=== PATIENT | female | born 1985 | race Caucasian/White ===

== ENCOUNTER → 2016-05-21 | Day surgery (SDC) | payer BC ==
--- NOTE | 2016-05-23 15:38 | PATH ---
Cytology Non-Gynecological Report Patient Name: CANDIDA DOAN [facility]. Rec. #: [id number] /Age/Gender: 1985 (Age: 30) / F Account: [id number] Location: RADIOLOGY Taken: 05/21/2016 Received: 05/21/2016 Reported: 05/23/2016 Physicians: Kerri Hansen M.D. Specimen(s) Received LEFT THYROID FNA Clinical History Left thyroid nodule 2.1 x 0.98 x 1.0 cm Final Diagnosis THYROID GLAND, LEFT LOBE, US GUIDED FINE NEEDLE ASPIRATION BIOPSY: EVALUATION IS PARTIALLY LIMITED BY AIR DRYING ARTIFACT. ATYPICAL CELLS OF DETERMINE SIGNIFICANCE (AUS, BETHESDA CATEGOY III), SEE COMMENT. Comment: Smears show scattered clusters of follicular epithelial cells with focal crowding, mild to moderate nuclear enlargement and occasional nuclear grooves. Colloid is focally present. Microcalcifications are focally present. The findings are best classified as atypia of undetermined significance (AUS, [place] category III) with the described nuclear features, while not diagnostic, raising concerns for papillary thyroid carcinoma. Clinical, imaging correlations and additional sampling are suggested. The case was discussed with Dr. Diaz on 05/22/16. Electronically Signed Ike Almaraz M.D. Gross Description Received are four air dried smears, four smears in 95% alcohol, and 1 cc of bloody fluid in formalin. Four diff-quik stained slides, four Pap stained slides and one cell block are made.
== END | disposition home or self-care (01) ==
LOC: JRADIR 09:33
PROVIDERS: ATTEND Internal Medicine Endocrinology, Diabetes & Metabolism
PROC: 0G9G3ZX Drainage of Left Thyroid Gland Lobe, Percutaneous Approach, Diagnostic (ICD-10-PCS; principal; 2016-05-21)
PROC: BG44ZZZ Ultrasonography of Thyroid Gland (ICD-10-PCS; 2016-05-21)
DX: E04.1 Nontoxic single thyroid nodule (principal)
CPT/HCPCS: 76942; 88173; 88305-TC

== ENCOUNTER → 2016-05-26 | Day surgery (SDC) | payer BC ==
[2016-05-26 10:06] LABS: BASOPHIL 0.7 % (0-2.0); EOSINOPHIL 1.2 % (0-4.5); MCH 30.3 pg (25.7-33.7); MCHC 33.5 g/dl (32.0-36.0); MEAN CELL VOLUME 90.6 fl (80-96); MEAN PLT VOLUME 8.2 fl (7.5-11.1); NEUTROPHILS 61.2 % (42.8-82.8); PLATELET COUNT 278 K/MM3 (134-434); RDW 12.5 % (11.6-15.6); WHITE BLOOD COUNT 7.8 K/mm3 (4.0-10.0)
[2016-05-26 10:19] LABS: INR 1.12 (0.82-1.09); PROTHROMBIN TIME (PATIENT) 12.3 SEC (9.98-11.88)
--- NOTE | 2016-05-29 10:19 | PATH ---
Surgical Pathology Report Patient Name: CANDIDA DOAN [facility]. Rec. #: [id number] /Age/Gender: 1985 (Age: 30) / F Account: [id number] Location: ICU [employer] Taken: 05/26/2016 Received: 05/26/2016 Reported: 05/29/2016 Physicians: Kerri Hansen M.D. Specimen(s) Received LEFT NECK LYMPH NODE SAMIR BX Clinical History 30 year-old female with left thyroid lobe mass and multiple left neck lymph nodes Rule out metastases thyroid carcinoma versus lymphoma versus inflammatory/infective process Final Diagnosis LYMPH NODE, LEFT CERVICAL, US GUIDED CORE BIOPSY: INVOLVEMENT BY CARCINOMA OF THYROID ORIGIN CONSISTENT WITH PAPILLARY THYROID CARCINOMA (SEE COMMENT). Comment: Immunohistochemical stains performed and interpreted at [facility] show the following: the tumor cells are positive for TTF1 and CK7 immunostains and negative for CK20. Additional immunohistochemical stains performed at [place], [place] ([id number]) and interpreted at [facility] show the tumor cells are positive for Thyroglobulin immunostain and negative for Calcitonin immunostain; Napsin A shows non-specific reactivity. Overall, the morphologic findings and immunoprofile are consistent with involvement by papillary thyroid carcinoma. Also refer to [id number] for the prior left thyroid FNA biopsy results. Electronically Signed Ike Almaraz M.D. Gross Description Received in formalin, labeled "left lymph node," are 2 sevilla, cylindrical portions of soft tissue measuring 0.6 and 0.8 cm in length and averaging 0.1 cm in diameter. Submitted in toto in one cassette. Additional tissue received in RPMI solution, labeled "left lymph node" is 2 sevilla, cylindrical portions of soft tissue averaging 0.4 cm in length and 0.1 cm in diameter. Submitted in an additional cassette 05/26/201605/26/2016
== END | disposition home or self-care (01) ==
LOC: JRADIR 09:48
PROVIDERS: ATTEND Otolaryngology
PROC: 07B23ZX Excision of Left Neck Lymphatic, Percutaneous Approach, Diagnostic (ICD-10-PCS; principal; 2016-05-26)
PROC: BW4FZZZ Ultrasonography of Neck (ICD-10-PCS; 2016-05-26)
DX: R59.9 Enlarged lymph nodes, unspecified (principal)
CPT/HCPCS: 36415; 76942-TC; 85025; 85610; 88305-TC; 88341-TC; 88342-TC